=== PATIENT | female | born 1955 | race Caucasian/White ===

== ENCOUNTER 2016-06-09 11:28 | Emergency (ER) | payer OTHER ==
[~2016-06-09 11:28] MED LIST: ACTOS; ADVAIR 1001 DISK W/D PO; ALBUTEROL17 GM NEB; CRESTOR PO; LEVAQUIN750 MG PO; LEXAPRO; PREDNISONE50 MG PO; PROZAC PO; SYNTHROID; SYNTHROID PO; TOPROL XL PO; ZETIA PO
[2016-06-09 11:46] LABS: URINE SOURCE CLEAN CATCH
[2016-06-09 11:49] LABS: BASOPHIL% 0.2 % (0-2.5); HEMOGLOBIN 13.8 gm/dL (12.0-16.0); LYMPHOCYTE# 0.5 X10e3 (1.0-3.5); LYMPHOCYTE% 6.8 % (17.0-45.0); MEAN CELL VOLUME 81.4 FL (83-96); MEAN CORPUSCULAR HEMOGLOBIN 26.7 PG (28-34); MEAN CORPUSCULAR HGB CONC 32.9 g/dL (30-36); MEAN PLATELET VOLUME 9.7 FL (6.5-11.5); MONOCYTE# 1.3 X10e3 (0-1.0); MONOCYTE% 17.9 % (3.0-12.0); NEUTROPHIL# 5.6 X10e3 (1.5-7.1); NEUTROPHIL% 75.1 % (40-75); PLATELET COUNT 217 X10e3 (140-420); RED BLOOD COUNT 5.16 X10e (3.90-5.30); RED CELL DISTRIBUTION WIDTH 13.4 % (11.0-15.5); WHITE BLOOD COUNT 7.5 X10e3 (4.0-10.5)
[2016-06-09 11:51] LABS: DIFF IND NO
[2016-06-09 11:58] LABS: URINE APPEARANCE TURBID; URINE BILIRUBIN NEG (NEG); URINE BLOOD 1+ (NEG); URINE COLOR YELLOW; URINE GLUCOSE NEG (NEG); URINE KETONE NEG (NEG); URINE LEUKOCYTE ESTERASE 1+ (NEG); URINE NITRATE NEG (NEG); URINE PROTEIN 1+ (NEG); URINE SPECIFIC GRAVITY 1.032 (1.003-1.035); URINE UROBILINOGEN 0.2 MG/DL (NEG)
[2016-06-09 12:01] LABS: URINE BACTERIA AUWI NEG (NEGATIVE); URINE SQUAMOUS EPITHELIAL CELL OCC /[HPF]
[2016-06-09 12:19] LABS: URINE AMORPHOUS SEDIMENT AMORP URATES
[2016-06-09 12:20] LABS: CULTURE INDICATED? YES
[2016-06-09 12:35] LABS: ALBUMIN SERUM 4.5 g/dL (3.5-5.0); ALKALINE PHOSPHATASE 85 U/L (32-92); ALT (SGPT) 27 U/L (10-40); AST (SGOT) 29 U/L (10-42); BILIRUBIN, DIRECT 0.1 mg/dL (0.0-0.2); BILIRUBIN,INDIRECT 0.7 mg/dL (0.0-0.9); BILIRUBIN,TOTAL 0.8 mg/dL (0.2-2.0); BLOOD UREA NITROGEN 17 mg/dL (9-23); BUN/CREATININE RATIO 18.88; CALCIUM SERUM 9.4 mg/dL (8.4-10.2); CARBON DIOXIDE 25 mmol/L (22-31); CHLORIDE 100 mmol/L (100-111); CREATININE SERUM 0.9 mg/dL (0.6-1.4); GLOM FILT RATE Estimated ABOVE60 mL/min (>60); GLUCOSE FASTING 126 mg/dL (70-110); LIPASE 13 U/L (22-51); POTASSIUM 3.4 mmol/L (3.5-5.1); PROTEIN TOTAL SERUM 7.9 g/dL (6.0-8.3); SODIUM 135 mmol/L (135-145)
[2016-06-09 12:46] LABS: INFLUENZA A NEG (NEG); INFLUENZA B NEG (NEG)
== END 2016-06-09 13:59 | disposition home or self-care (01) ==
LOC: CED 11:28
PROVIDERS: Emergency Medicine
DX: A08.4 Viral intestinal infection, unspecified (principal); J45.909 Unspecified asthma, uncomplicated; Z90.710 Acquired absence of both cervix and uterus
CPT/HCPCS: 36415; 80048; 80076; 81003; 83690; 85025; 85379; 87086; 87804; 96361; 96374; 99284; J2405

== ENCOUNTER 2016-07-03 10:17 | Emergency (ER) | payer OTHER ==
--- NOTE | ~2016-07-03 | CT4 ---
[facility] A Service of [facility] & [facility] RADIOLOGY TEXT RESULTS PATIENT: ANA ROSA DEL VALLE LOCATION: [employer] : 55 UNIT #: [id number] AGE: [address]: Clive Schulte MD SEX: F ORDER DR: [id number] [facility] [address] [place], [place] [address] [id number] MR#: [id number] Acc #: [id number] NAME: ANA ROSA DEL VALLE : 1955 SEX: F STUDY DATE/TIME: 07/03/2016 10:37 UNIT: [facility] ROOM: STUDY DESCRIPTION: CT Abd and Pelv Wo Cont Attending Physician: Clive Schulte M.D. Ordering Physician: Clive [id number] Mannie Schulte Primary Care Physician: Primary Care Physician No MEDICAL IMAGING REPORT This report is preliminary unless electronic signature is present EXAM CT abdomen and pelvis 07/03/2016 HISTORY Asthma, right lower quadrant pain, right lower back pain for 1 month. Prior bilateral ankles. Prior hysterectomy. TECHNIQUE CT abdomen and pelvis performed without administration of intravenous contrast. This CT exam was performed with one or more of the following radiation dose reduction techniques: automatic exposure control, adjustment of mA and/or kV according to patient size, and iterative reconstruction. COMPARISON 10/17/2004. Prior study used intravascular contrast. FINDINGS Pectus excavatum configuration anterior inferior thorax stable. Lung bases are notable only for minimal atelectasis or scarring in the inferior lingular segment. Heart normal in size. Liver, gallbladder, spleen, pancreas, adrenal glands unremarkable. Left kidney and ureter normal. Right kidney contains 2 cysts, the larger in the posterior mid kidney measuring 2.1 cm in diameter. No right-sided hydronephrosis or nephrolithiasis. No ureteral dilatation or ureteral calculus. A calcification in the deep right pelvis immediately adjacent to the distal right ureter is clearly extrinsic to the ureter on sagittal reconstructed images. CT Pelvis: No inguinal adenopathy. Urinary bladder unremarkable. Status post hysterectomy. No suspicious adnexal structures. No pelvic or retroperitoneal adenopathy. Distal esophagus, stomach, small bowel [facility] A Service of [facility] & [facility] RADIOLOGY TEXT RESULTS PATIENT: ANA ROSA DEL VALLE [id number] UNIT #: [id number] AGE: [address]: Clive Schulte MD SEX: F ORDER DR: normal. Appendix unremarkable. Colon shows uncomplicated distal colonic diverticulosis. Unopacified vascular structures show minimal scattered atherosclerotic arterial calcifications. No acute bony abnormality. Levoscoliosis lumbar spine. IMPRESSION 1. No acute abnormality seen in the abdomen or pelvis. Cause for the patient's right lower quadrant pain unclear on basis of this examination. 2. No renal calculi or obstruction. No perinephric or periureteral inflammatory change. 3. Right renal cysts. 4. Gallbladder, pancreas, appendix normal. 5. Sigmoid colon diverticulosis. No morphologic findings of diverticulitis. 6. Stable appearance of pectus excavatum. 7. Levoscoliosis lumbar spine. No acute bony abnormality. 8. Postoperative changes of hysterectomy. Dictated by... Nathen Wilson M.D. THIS IS AN ELECTRONICALLY VERIFIED REPORT Nathen Wilson M.D. at 07/03/2016 7:54 PM Luly TD: 07/03/2016 11:28 JOB #: [id number] MEDICAL IMAGING REPORT Page 1 of 1 COPY
[2016-07-03 09:23] LABS: URINE SOURCE CLEAN CATCH
[2016-07-03 09:29] LABS: URINE APPEARANCE CLEAR; URINE BILIRUBIN NEG (NEG); URINE BLOOD NEG (NEG); URINE COLOR YELLOW; URINE GLUCOSE NEG (NEG); URINE KETONE NEG (NEG); URINE LEUKOCYTE ESTERASE 1+ (NEG); URINE NITRATE NEG (NEG); URINE PROTEIN NEG (NEG); URINE UROBILINOGEN 0.2 MG/DL (NEG)
[2016-07-03 09:34] LABS: URINE BACTERIA AUWI NEG (NEGATIVE); URINE SQUAMOUS EPITHELIAL CELL OCC /[HPF]
[2016-07-03 09:54] LABS: CULTURE INDICATED? NO
[2016-07-03 09:55] LABS: URINE MUCUS PRESENT
[2016-07-03 10:39] LABS: BASOPHIL% 0.7 % (0-2.5); EOSINOPHIL# 0.1 X10e3 (0-0.7); EOSINOPHIL% 2.7 % (0.0-7.0); HEMATOCRIT 40.7 % (35.0-45.0); HEMOGLOBIN 13.1 gm/dL (12.0-16.0); LYMPHOCYTE# 1.5 X10e3 (1.0-3.5); LYMPHOCYTE% 30.6 % (17.0-45.0); MEAN CELL VOLUME 82.1 FL (83-96); MEAN CORPUSCULAR HEMOGLOBIN 26.4 PG (28-34); MEAN CORPUSCULAR HGB CONC 32.2 g/dL (30-36); MEAN PLATELET VOLUME 9.1 FL (6.5-11.5); MONOCYTE# 0.5 X10e3 (0-1.0); MONOCYTE% 10.5 % (3.0-12.0); NEUTROPHIL# 2.7 X10e3 (1.5-7.1); NEUTROPHIL% 55.5 % (40-75); PLATELET COUNT 250 X10e3 (140-420); RED BLOOD COUNT 4.95 X10e (3.90-5.30); RED CELL DISTRIBUTION WIDTH 14.2 % (11.0-15.5); WHITE BLOOD COUNT 4.8 X10e3 (4.0-10.5)
[2016-07-03 10:42] LABS: DIFF IND NO
[2016-07-03 11:27] LABS: ALBUMIN SERUM 4.3 g/dL (3.5-5.0); BILIRUBIN, DIRECT 0.2 mg/dL (0.0-0.2); BILIRUBIN,INDIRECT 0.7 mg/dL (0.0-0.9); BILIRUBIN,TOTAL 0.9 mg/dL (0.2-2.0); CALCIUM SERUM 9.2 mg/dL (8.4-10.2); CREATININE SERUM 0.5 mg/dL (0.6-1.4); GLOM FILT RATE Estimated 104.5 mL/min (>60); POTASSIUM 3.5 mmol/L (3.5-5.1); PROTEIN TOTAL SERUM 7.4 g/dL (6.0-8.3)
== END 2016-07-03 11:50 | disposition home or self-care (01) ==
LOC: CED 10:17
PROVIDERS: Emergency Medicine
DX: R10.31 Right lower quadrant pain (principal); M54.5 Low back pain; Z88.5 Allergy status to narcotic agent
CPT/HCPCS: 36415; 74176; 80048; 80076; 81003; 82150; 83690; 85025; 96374; 99284; J1885

== ENCOUNTER 2016-08-04 10:47 | Inpatient (IN) | payer OTHER ==
--- NOTE | ~2016-08-04 | DS ---
Unit #: [id number] #: [id number] Patient: ANA ROSA DEL VALLE [id number] [facility] [address] [place] [address] [id number] I MR#: [id number] NAME: ANA ROSA DEL VALLE. ROOM: [facility] Age: 61 Sex: F Admission Date: 08/04/2016 : 1955 Discharge Date: 08/10/2016 Attending Physician: Antwan Mayfield M.D. Primary Care Physician: Primary Care Physician No DISCHARGE SUMMARY REASON FOR ADMISSION Depression and anxiety. DIAGNOSTIC STUDIES LABORATORY RESULTS: Unremarkable except cholesterol 223, LDL cholesterol 154. HOSPITAL COURSE The patient was admitted to inpatient unit on 08/05/2016 and discharged on 08/10/2016. The patient was treated with group therapy, individual therapy, and medication management. The patient responded well with the above modalities of treatment and showed improvement. Subsequently, the patient was discharged with a plan to follow up in outpatient program. DISCHARGE MEDICATIONS Celexa 20 mg daily for mood symptom, Desyrel 50 mg at bedtime for sleep, Relafen 500 mg b.i.d. p.r.n. for pain, and Vistaril 50 mg t.i.d. for anxiety. DISCHARGE DIAGNOSES Psychiatric: Major depressive disorder, recurrent, severe, F33.2; anxiety disorder, not otherwise specified, F41.9. Secondary diagnosis: Deferred. Medical diagnosis: Obesity, asthma, high cholesterol. Stressors: Psychosocial stressors. DISCHARGE INSTRUCTIONS The patient to follow up in outpatient clinic as per social media community manager. CONDITION ON DISCHARGE The patient was pleasant and cooperative. Denied any psychotic symptom or any suicidal ideation. PROGNOSIS Guarded. DIET AND ACTIVITY As tolerated. Unit #: [id number] #: [id number] Patient: ANA ROSA DEL VALLE Dictated by... Bishop EnnisC/guero TD: 08/10/2016 17:51 JOB #: [id number] DISCHARGE SUMMARY Page 1 of 1 X Antwan Mayfield MD X DISCHARGE SUMMARY
--- NOTE | ~2016-08-04 | CO ---
Unit #: [id number] #: [id number] Patient: ANA ROSA DEL VALLE [id number] [place] [address] [id number] I MR#: [id number] NAME: ANA ROSA DEL VALLE ROOM: 63 Age: 61 Sex: F Admission Date: 08/04/2016 : 1955 Attending Physician: Antwan Mayfield M.D. Primary Care Physician: Primary Care Physician No Consultation Date: 08/05/2016 CONSULTATION REPORT SUBJECTIVE Ana Rosa is a 61-year-old who has complained of some back pain. She denies any urgency, frequency, or dysuria. She does have history of osteoarthritis. Katy was seen for her admission H and P on 08/04/2016. We will start Relafen 500 mg one p.o. b.i.d. Dictated by... Tamara Aquino P.A.-C. for Bishop Blancas/guero TD: 08/05/2016 23:15 JOB #: [id number] CONSULTATION REPORT Page 1 of 1 X Tamara Aquino CONSULTATION REPORT
--- NOTE | ~2016-08-04 | PN ---
Unit #: [id number] #: [id number] Patient: ANA ROSA DEY [id number] [facility] [address] [place] [address] [id number] I MR#: [id number] NAME: ANA ROSA DEY. ROOM: [facility] Age: 61 Sex: F Admission Date: 08/04/2016 : 1955 Attending Physician: Antwan Mayfield M.D. Admitting Physician: Antwan Mayfield M.D. Primary Care Physician: Primary Care Physician Gay DAVIDSON PROGRESS NOTES DATE OF SERVICE: 08/09/2016 DISCUSSION Ms. Ana Rosa Dey is a 61-year-old female, seen on 08/09/2016. The patient interviewed, chart reviewed, and obtained information from nursing staff. The patient continues to report anxiety, isolative, guarded, flat affect, but mood is better. The patient denied any thoughts of harming self or others. Compliant with medication, still isolative and guarded. REVIEW OF SYSTEMS Complete review of systems unremarkable. MENTAL STATUS EXAMINATION General appearance, the patient dressed casually. Attention span and concentration, fair. Oriented in time, place, and person. Mood and affect, sad and dysphoric. Speech, monotone. Thought process, concrete. The patient denied any suicidal or homicidal ideation, but still having anxiety. Recent and remote memory, poor. Insight and judgment, poor. DIAGNOSES 1. Major depressive disorder, recurrent. 2. Anxiety disorder, not otherwise specified. ASSESSMENT AND PLAN Advised to continue with current medication with a plan to consider discharge next week and follow up in outpatient program. Dictated by... Bishop Ennis/guero TD: 08/10/2016 04:04 JOB #: [id number] Unit #: [id number] #: [id number] Patient: ANA ROSA DEY STUART PROGRESS NOTES Page 1 of 1 X Antwan Mayfield MD PROGRESS NOTE
--- NOTE | ~2016-08-04 | PN ---
Unit #: [id number] #: [id number] Patient: ANA ROSA DEL VALLE [id number] [facility] [address] [place] [address] [id number] MR#: [id number] NAME: ANA ROSA DEL VALLE. ROOM: [facility] Age: 61 Sex: F Admission Date: 08/04/2016 : 1955 Attending Physician: Antwan Mayfield M.D. Admitting Physician: Antwan Mayfield M.D. Primary Care Physician: Primary Care Physician Gay DAVIDSON PROGRESS NOTES DATE OF SERVICE: 08/08/2016 DISCUSSION Ms. Matthews is a 61-year-old female, seen on 08/08/2016. The patient interviewed, chart reviewed, and obtained information from nursing staff. The patient was compliant, cooperative, mood is sad, dysphoric, flat affect, guarded. The patient reported still having anxiety, anxious, guarded, flat affect, withdrawn, isolative. REVIEW OF SYSTEMS Complete review of systems unremarkable. MENTAL STATUS EXAMINATION General appearance, the patient dressed casually. Attention span and concentration, fair. Oriented in time, place, and person. Mood and affect, sad and dysphoric. Speech, monotone. Thought process, concrete. The patient reported having severe anxiety, but passive SI, guarded. Recent and remote memory, poor. Insight and judgment, poor. DIAGNOSES 1. Major depressive disorder, recurrent. 2. Anxiety disorder, not otherwise specified. ASSESSMENT AND PLAN Advised to continue with current medication and therapeutic protocol. If needed, consider further adjustment of medication. Dictated by... Bishop Enins/guero TD: 08/10/2016 03:12 JOB #: [id number] Unit #: [id number] #: [id number] Patient: ANA ROSA DEL VALLE PEADEANA PROGRESS NOTES Page 1 of 1 X Antwan Mayfield MD PROGRESS NOTE
--- NOTE | ~2016-08-04 | PN ---
Unit #: [id number] #: [id number] Patient: ANA ROSA DEY [id number] [facility] [address] [place] [address] [id number] MR#: [id number] NAME: ANA ROSA DEY. ROOM: [facility] Age: 61 Sex: F Admission Date: 08/04/2016 : 1955 Attending Physician: Antwan Mayfield M.D. Admitting Physician: Antwan Mayfield M.D. Primary Care Physician: Primary Care Physician Gay DAVIDSON PROGRESS NOTES DATE 08/05/2016 DISCUSSION Ms. Ana Rosa Dey is a 61-year-old female, seen on 08/05/2016. The patient continues to be anxious, nervous, somewhat shaking, tremors noted. The patient tolerating medication fairly well, reports decrease in anxiety-depression but still sad, depressed, and anxious, able to participate in program some but still seclusive, isolative. The patient's Accu-Chek was 120 this morning. REVIEW OF SYSTEMS Complete review of systems unremarkable. MENTAL STATUS EXAMINATION General appearance: Patient dressed casually. Attention span and concentration, fair. Oriented to place and person. Mood and affect, sad and dysphoric. Speech, monotone. Thought process, the patient denied any suicidal ideation having passive suicidal ideation, denied auditory or visual hallucinations. Recent and remote memory, poor. Insight and judgment, poor. DIAGNOSES 1. Major depressive disorder, recurrent. 2. Anxiety disorder, NOS. ASSESSMENT/PLAN Advised to continue with the current medication combination of Desyrel, Celexa, Ativan p.r.n. if needed consider adjustment of medication. Dictated by... Bishop Ennis/radha TD: 08/06/2016 09:43 JOB #: [id number] Unit #: [id number] #: [id number] Patient: ANA ROSA DEY STUART PROGRESS NOTES Page 1 of 1 X Antwan Mayfield MD PROGRESS NOTE
--- NOTE | ~2016-08-04 | PA ---
Unit #: [id number] #: [id number] Patient: ANA ROSA DEL VALLE [id number] [place] [address] [id number] MR#: [id number] NAME: ANA ROSA DEL VALLE. ROOM: [facility] Age: 61 Sex: F Admission Date: 08/04/2016 : 1955 Date of Assessment: 08/04/2016 Attending Physician: Antwan Mayfield M.D. Admitting Physician: Antwan Mayfield M.D. Primary Care Physician: Primary Care Physician No PSYCHIATRIC ASSESSMENT DATE OF SERVICE 08/04/2016. INFORMANTS The patient reliability, fair informant and chart reliability, good. CHIEF COMPLAINT Depression and anxiety. HISTORY OF PRESENT ILLNESS Ms. Matthews is a 61-year-old, presented with the above-mentioned complaint. The patient reported having suicidal ideation with a plan, intent to jump off the bridge. The patient reported feeling increased anxiety, recently started on Prozac. Currently, not working. The patient denied any use of drugs or alcohol. The patient reported feeling sad and depressed, feeling of hopelessness and worthlessness, and severe anxiety. The patient was supposed to start IOP program today. The patient was unable to contract for safety. Needing inpatient admission at this time for psychiatric stabilization. PAST PSYCHIATRIC HISTORY Remarkable for history of outpatient treatment for anxiety, but no history of any inpatient treatment. FAMILY AND SOCIAL HISTORY The patient lives by herself, has a good support system. Family history is remarkable for history of anxiety in grandmother and father and mother's side of the family. No known history of any abuse. MEDICAL HISTORY Remarkable for high cholesterol and asthma. Musculoskeletal; muscle strength and tone, no atrophy or abnormal movement. Gait normal. MEDICATION HISTORY Prozac 20 mg daily, levothyroxine, lorazepam, and statin. ALLERGIES No known drug allergies. SUBSTANCE ABUSE HISTORY None. REVIEW OF SYSTEMS Unit #: [id number] #: [id number] Patient: ANA ROSA DEL VALLE HEENT: Eyes, clear. Ears, nose, mouth, and throat; clear. CARDIOVASCULAR: Unremarkable. RESPIRATORY: Unremarkable. GI: Unremarkable. : Unremarkable. SKIN: Unremarkable. LYMPH NODE: Unremarkable. NEUROLOGIC: Unremarkable. ENDOCRINE: Unremarkable. HEMATOLOGIC: Unremarkable. ALLERGIC/IMMUNOLOGIC: Unremarkable. MUSCULOSKELETAL: Muscle strength and tone, no atrophy or abnormal movement. Gait normal. MENTAL STATUS EXAMINATION CONSTITUTIONAL: Measurement of vital signs; temperature afebrile, respirations 18, and blood pressure is 130/80. Weight is 199 pounds. GENERAL APPEARANCE: The patient dressed casually, tall, well built. No facial deformity noted. MUSCULOSKELETAL: Please see above. PSYCHIATRIC EXAMINATION Description of speech; regular rate, normal volume, normal articulation, coherent, and spontaneous. Description of thought process, goal directed. Description of abnormal psychotic thinking; the patient denied any hallucinations or delusions, but mood lability, depression, and suicidal ideation. Denied any psychotic symptom. Description of the patient's judgment: Concerning everyday activity, poor. Social situation, poor. Concerning psychiatric condition, poor. Complete mental status examination; oriented in time, place, and person. Recent and remote memory, fair. Attention span and concentration, fair. Language, able to name object and repeat phrases. Fund of knowledge, aware of current event and passive vocabulary intact. Mood and affect, sad and dysphoric. Insight and judgment, fair to poor. ASSETS AND LIABILITIES Assets, the patient is articulate and able to take care of her ADL. Liability, history of depression. ADMITTING DIAGNOSES Psychiatric: Major depressive disorder, recurrent, severe, F33.2 and anxiety disorder, not otherwise specified, F41.9. Secondary diagnosis: Deferred. Medical diagnoses: Obesity, asthma, and high cholesterol. Stressors: Psychosocial stressors. PSYCHIATRIC PLAN AND TREATMENT GOAL AND DISCHARGE PLAN 1. Advised to admit the patient on the inpatient unit. Provide safe, supportive, and structured environment. 2. Ordered labs; CBC, CMP, UA, and UDS. 3. The patient to attend all the programing on the inpatient unit, group therapy, individual therapy, and medication management. Advised to start the patient on Celexa 20 mg daily and Ativan. To continue Vistaril 25 mg t.i.d. and Desyrel 50 mg at bedtime. If needed, consider further Unit #: [id number] #: [id number] Patient: ANA ROSA DEL VALLE adjustment of medication. TREATMENT GOAL To attain euthymic mood, gain insight into her problem, and learn coping skills. DISCHARGE PLAN Plan to stabilize the patient and consider followup in outpatient program. ESTIMATED LENGTH OF STAY 5 days. Dictated by... Bishop Ennis TD: 08/04/2016 17:46 JOB #: [id number] PSYCHIATRIC ASSESSMENT Page 1 of 1 X Antwan Mayfield MD PSYCHIATRIC ASSESSMENT
--- NOTE | ~2016-08-04 | PN ---
Unit #: [id number] #: [id number] Patient: ANA ROSA DEL VALLE [id number] [facility] [address] [place] [address] [id number] MR#: [id number] NAME: ANA ROSA DEL VALLE. ROOM: [facility] Age: 61 Sex: F Admission Date: 08/04/2016 : 1955 Attending Physician: Antwan Mayfield M.D. Admitting Physician: Antwan Mayfield M.D. Primary Care Physician: Primary Care Physician Gay DAVIDSON PROGRESS NOTES DATE OF SERVICE 08/06/2016 DISCUSSION Ms. Matthews is a 61-year-old female seen on 08/06/2016. Patient interviewed, chart reviewed, I obtained information from nursing staff. Patient was compliant, cooperative. Mood sad, dysphoric, flat affect, guarded. Patient reported still having problem with anxiety, sad, depressed. COMPLETE REVIEW OF SYSTEMS Unremarkable. MENTAL STATUS EXAMINATION GENERAL APPEARANCE: Patient dressed casually, withdrawn, isolative. ATTENTION SPAN AND CONCENTRATION: Poor. Oriented in time, place and person. MOOD AND AFFECT: Sad, depressed. SPEECH: Slow. THOUGHT PROCESS: Goal directed. Patient denied any thoughts of harming others but having suicidal ideation, passive. RECENT AND REMOTE MEMORY: Poor. INSIGHT AND JUDGMENT: Poor. DIAGNOSES Mood disorder, NOS Anxiety disorder, NOS ASSESSMENT/PLAN Advised to continue with current medication. If needed, consider further adjustment in medication. Dictated by... Bishop Ennis/rafael TD: 08/07/2016 00:22 JOB #: [id number] Unit #: [id number] #: [id number] Patient: ANA ROSA DEL VALLEDEANA PROGRESS NOTES Page 1 of 1 X Antwan Mayfield MD X PROGRESS NOTE
--- NOTE | ~2016-08-04 | CO ---
Unit #: [id number] #: [id number] Patient: ANA ROSA DEL VALLE [id number] [place] [address] [id number] MR#: [id number] NAME: ANA ROSA DEL VALLE ROOM: [facility] Age: 61 Sex: F Admission Date: 08/04/2016 : 1955 Attending Physician: Antwan Mayfield M.D. Primary Care Physician: Primary Care Physician No Consultation Date: 08/04/2016 CONSULTATION REPORT SUBJECTIVE Ana Rosa is a 61-year-old who gave history of diabetes mellitus at time of admission. She admits that she takes no home medications. Glucose on admission was 108. She has no complaints of polyuria or polydipsia. PLAN Plan will be to provide her a concentrated carbohydrate diet and she can follow up with PCP. Dictated by... Tamara Aquino P.A.-C. for Bishop Blancas/guero TD: 08/06/2016 00:00 JOB #: [id number] CONSULTATION REPORT Page 1 of 1 X Tamara Aquino CONSULTATION REPORT
--- NOTE | ~2016-08-04 | HP ---
Unit #: [id number] #: [id number] Patient: ANA ROSA DEL VALLE [id number] [place] [address] [id number] MR#: [id number] NAME: ANA ROSA DEL VALLE. ROOM: 63 Age: 61 Sex: F Admission Date: 08/04/2016 : 1955 Attending Physician: Antwan Mayfield M.D. Admitting Physician: Antwan Mayfield M.D. Primary Care Physician: Primary Care Physician No HISTORY AND PHYSICAL HISTORY OF PRESENT ILLNESS Ana Rosa is a 61 year old admitted to [address] [place] [address] with depression and verbalizing wanting to hurt herself. This is her first admission to [facility]. PAST MEDICAL HISTORY 1. COPD. 2. Hypercholesterolemia. 3. Hypothyroidism. 4. Diabetes mellitus. PAST SURGICAL HISTORY Hysterectomy. ALLERGIES Codeine. SOCIAL HISTORY She does not smoke, drink alcohol or use illicit drugs. FAMILY HISTORY Medically noncontributory. REVIEW OF SYSTEMS CONSTITUTIONAL: No fever or chills. HEENT: Denies any sore throat, ear pain or runny nose. CARDIOVASCULAR: Denies chest pain, irregular heart rhythm or palpitations. CHEST: Denies shortness of breath or cough. No hemoptysis. GASTROINTESTINAL: Denies nausea, vomiting, diarrhea or chronic constipation. ENDOCRINE: Denies history of increased thirst or urination. No recent significant weight loss or gain. GENITOURINARY: Denies dysuria, frequency, or hematuria. SKIN: Denies any rashes. HEMATOLOGIC: Denies history of increased bleeding or bruising. MUSCULOSKELETAL: Denies any hot, swollen joints. No generalized muscle pain. NEUROLOGIC: Denies problems with vision or speech. No frequent, severe headaches. No numbness, tingling or weakness in any extremities. Denies loss of bladder or bowel control. CURRENT MEDICATIONS 1. Synthroid 0.025 mg daily. 2. Desyrel 50 mg q.h.s. Unit #: [id number] #: [id number] Patient: ANA ROSA DEL VALLE 3. Lipitor 40 mg q.h.s. 4. Vistaril 25 mg t.i.d. 5. Celexa 20 mg daily. 6. Ativan 0.5 mg daily. 7. Milk of Magnesia p.r.n. 8. Maalox p.r.n. 9. Tylenol p.r.n. PHYSICAL EXAMINATION GENERAL: Alert, pleasant lady in no apparent distress. VITAL SIGNS: Blood pressure 130/86, heart rate 80, respirations 16, temperature 98.6. WEIGHT: 199. HEIGHT: 5 feet 10 inches. SKIN: Warm and dry without rash or lesion. HEENT: Normocephalic. TMs not viewed. Oral and nasal passages clear. Conjunctivae clear. PERRLA. EOMs intact. NECK: Supple without lymphadenopathy or thyromegaly. HEART: Regular rate and rhythm without murmur. LUNGS: Clear. ABDOMEN: Soft, nontender. : Not done. EXTREMITIES: No evidence of cyanosis, clubbing or edema. Moves all without focal deficit. NEUROLOGICAL: Grossly within normal limits. Cranial Nerves: II: Visual andrea are intact. III, IV AND : Extraocular movements are intact. Pupils are equal, round and reactive to light. V: Facial sensation is grossly normal. VII: Facial movements and expression are normal. VIII: Auditory acuity grossly intact. IX, X: Uvula is midline. Phonation is normal. XI: Patient shrugs shoulders and turns head normally. XII: Tongue protrudes in the midline. Sensory and Motor Function: Sensory and motor sensation is grossly normal. Motor: moves all extremities well. Coordination: Gait is normal. Deep Tendon Reflexes: Intact. IMPRESSION Psychiatric admission. RECOMMENDATIONS PSYCHIATRIC: Per psychiatrist. MEDICAL: 1. See no contraindications to participate in facility's activities. 2. Continue Synthroid. Check TSH. 3. Constant carb diet. MEDICAL PROGNOSIS Good. MEDICAL CONDITION Stable. Dictated by... Tamara Aquino P.A.-C. for Unit #: [id number] #: [id number] Patient: ANA ROSA DEL VALLE Bishop Rodriguez/marc TD: 08/04/2016 16:10 JOB #: [id number] HISTORY AND PHYSICAL Page 1 of 1 X Tamara Aquino HISTORY AND PHYSICAL
--- NOTE | ~2016-08-04 | PN ---
Unit #: [id number] #: [id number] Patient: ANA ROSA DEL VALLE [id number] [facility] [address] [place] [address] [id number] MR#: [id number] NAME: ANA ROSA DEL VALLE. ROOM: [facility] Age: 61 Sex: F Admission Date: 08/04/2016 : 1955 Attending Physician: Antwan Mayfield M.D. Admitting Physician: Antwan Mayfield M.D. Primary Care Physician: Primary Care Physician Gay GRIFFIN NOTES DATE OF SERVICE 08/07/2016 DISCUSSION Ana Rosa is a 61-year-old female seen on 08/07/2016. The patient interviewed, chart reviewed. Obtained information from nursing staff. The patient was compliant, cooperative. Mood sad, dysphoric, flat affect, guarded. The patient still reporting having severe anxiety. Unable to go in groups, isolative. No side effects from medication. Complete Review of Systems: Unremarkable. MENTAL STATUS EXAMINATION General Appearance: The patient dressed casually in hospital attire. Isolative, guarded, flat affect. Sad, dysphoric. Attention span, concentration: Fair. Oriented in time, place, and person. Mood and affect: Sad, dysphoric, depressed. Speech: Monotone. Thought process: Ulman. The patient denied any thoughts of harming self or others but having severe anxiety. Feeling sad, depressed. Recent and remote memory: Poor. Insight and judgment: Poor. DIAGNOSES 1. Major depressive disorder, recurrent. 2. Anxiety disorder not otherwise specified. ASSESSMENT/PLAN Advised to continue with current medication and therapeutic protocol. If needed, consider further adjustment of medication. Dictated by... Bishop Ennis/dorina TD: 08/08/2016 08:07 JOB #: [id number] Unit #: [id number] #: [id number] Patient: ANA ROSA DEL VALLE STUART PROGRESS NOTES Page 1 of 1 X Antwan Mayfield MD PROGRESS NOTE
[2016-08-05 09:37] LABS: BASOPHIL# 0.1 X10e3 (0-0.3); EOSINOPHIL# 0.1 X10e3 (0-0.7); EOSINOPHIL% 2.8 % (0.0-7.0); HEMATOCRIT 39.4 % (35.0-45.0); HEMOGLOBIN 12.8 gm/dL (12.0-16.0); LYMPHOCYTE# 1.1 X10e3 (1.0-3.5); LYMPHOCYTE% 34.9 % (17.0-45.0); MEAN CELL VOLUME 81.4 FL (83-96); MEAN CORPUSCULAR HEMOGLOBIN 26.4 PG (28-34); MEAN CORPUSCULAR HGB CONC 32.4 g/dL (30-36); MEAN PLATELET VOLUME 9.4 FL (6.5-11.5); MONOCYTE# 0.6 X10e3 (0-1.0); MONOCYTE% 19.4 % (3.0-12.0); NEUTROPHIL# 1.2 X10e3 (1.5-7.1); NEUTROPHIL% 39.9 % (40-75); PLATELET COUNT 209 X10e3 (140-420); RED BLOOD COUNT 4.84 X10e (3.90-5.30)
[2016-08-05 09:42] LABS: DIFF IND NO
[2016-08-05 09:51] LABS: BILIRUBIN,TOTAL 0.8 mg/dL (0.2-2.0); BUN/CREATININE RATIO 12.85; CALCIUM SERUM 9.5 mg/dL (8.4-10.2); CREATININE SERUM 0.7 mg/dL (0.6-1.4); GLOM FILT RATE Estimated 93.5 mL/min (>60); POTASSIUM 4.7 mmol/L (3.5-5.1); PROTEIN TOTAL SERUM 6.5 g/dL (6.0-8.3)
[2016-08-07 09:46] LABS: URINE APPEARANCE CLEAR; URINE BILIRUBIN NEG (NEG); URINE BLOOD NEG (NEG); URINE COLOR YELLOW; URINE GLUCOSE NEG (NEG); URINE KETONE NEG (NEG); URINE LEUKOCYTE ESTERASE NEG (NEG); URINE NITRATE NEG (NEG); URINE PH 6.5 (5-8); URINE PROTEIN NEG (NEG); URINE SPECIFIC GRAVITY 1.017 (1.003-1.035)
[2016-08-07 10:08] LABS: AMPHETAMINE NEG (NEG); BARBITURATES NEG (NEG); BENZODIAZEPINES NEG (NEG); COCAINE NEG (NEG); MARIJUANA NEG (NEG); OPIATES NEG (NEG); TRICYCLIC ANTIDEPRESSANTS NEG (NEG); U METHADONE NEG (NEG)
== END 2016-08-10 16:20 | disposition home or self-care (01) | DRG 885 ==
LOC: POF 10:47 → P2L 11:07
PROVIDERS: Psychiatry & Neurology Psychiatry
DX: F33.2 Major depressive disorder, recurrent severe without psychotic features (principal); E11.9 Type 2 diabetes mellitus without complications; J44.9 Chronic obstructive pulmonary disease, unspecified; F41.9 Anxiety disorder, unspecified; E66.9 Obesity, unspecified; J45.909 Unspecified asthma, uncomplicated; E78.00 Pure hypercholesterolemia, unspecified; E03.9 Hypothyroidism, unspecified; Z88.5 Allergy status to narcotic agent; Z90.710 Acquired absence of both cervix and uterus; M19.90 Unspecified osteoarthritis, unspecified site
CPT/HCPCS: 80053; 80307; 81003; 82947; 85025

== ENCOUNTER → 2016-09-15 | Outpatient (CLI) | payer OTHER ==
--- NOTE | ~2016-09-15 | US98 ---
[facility] A Service of [facility] RADIOLOGY TEXT RESULTS PATIENT: ANA ROSA DEL VALLE LOCATION: [facility] : 55 UNIT #: [id number] AGE: [address]: Mel Hernandez MD SEX: F ORDER DR: [id number] [facility] [address] [place], [place] [address] [id number] MR#: [id number] Acc #: [id number] NAME: ANA ROSA DEL VALLE : 1955 SEX: F STUDY DATE/TIME: 09/15/2016 10:59 UNIT: [facility] ROOM: STUDY DESCRIPTION: US Pelvic Non-OB Complete Attending Physician: Mel Hernandez M.D. Referring Physician: Mel Hernandez M.D. Ordering Physician: Mel Hernandez M.D. Primary Care Physician: Mel Hernandez M.D. MEDICAL IMAGING REPORT This report is preliminary unless electronic signature is present EXAMINATION Transabdominal pelvic ultrasound. DATE 09/15/2016 HISTORY Right lower quadrant abdominal pain radiating to the left flank since May 2016. COMPARISON CT abdomen and pelvis without contrast, 07/29/2016. FINDINGS Transabdominal imaging only was performed. The patient declined transvaginal imaging, although the technologist did explain the benefits of transvaginal imaging. The patient's wishes were respected. Patient has history of hysterectomy and bilateral salpingo-oophorectomy. Neither the uterus or the ovaries are visualized on this exam. No pelvic free fluid or mass lesions identified. IMPRESSION 1. Negative pelvic ultrasound. 2. Hysterectomy and bilateral oophorectomy. Dictated by... Gabby Leija M.D. THIS IS AN ELECTRONICALLY VERIFIED REPORT Gabby Leija M.D. at 09/16/2016 5:28 PM [facility]/jt [facility] A Service of [facility] RADIOLOGY TEXT RESULTS PATIENT: ANA ROSA DEL VALLE LOCATION: [facility] : 55 UNIT #: [id number] AGE: [address]: Mel Hernandez MD SEX: F ORDER DR: TD: 09/16/2016 16:27 JOB #: [id number] MEDICAL IMAGING REPORT Page 1 of 1 COPY
== END | disposition home or self-care (01) ==
LOC: CWCC 10:44
DX: R10.9 Unspecified abdominal pain (principal); K30 Functional dyspepsia; Z90.710 Acquired absence of both cervix and uterus; Z90.722 Acquired absence of ovaries, bilateral
CPT/HCPCS: 76856